=== PATIENT | female | born 1985 | race Caucasian/White ===

== ENCOUNTER 2017-02-02 18:45 | Emergency (ER) | payer BC ==
[~2017-02-02] VITALS: Ht 165.1 cm; Wt 81.6 kg
[2017-02-02 18:51] VITALS: BP 129/79
[2017-02-02] MEDS ORDERED: MOTRIN600 MG PO (19:41)
== END 2017-02-02 20:05 | disposition home or self-care (01) ==
LOC: EME 18:45
DX: S93.401A Sprain of unspecified ligament of right ankle, initial encounter (principal); X50.1XXA Overexertion from prolonged static or awkward postures, initial encounter
CPT/HCPCS: 73610; 99281; 99284